=== PATIENT | male | born 1990 | race Hispanic/Latino ===

== ENCOUNTER 2018-09-24 14:26 | Emergency (ER) | payer OTHER ==
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
[2018-09-24 17:14] VITALS: BP 116/79; PULSE 64; RESP 20; TEMP 97.5
[2018-09-24 20:01] VITALS: O2SAT 98
== END 2018-09-24 17:13 | disposition home or self-care (01) ==
LOC: C.ER 14:26
DX: S39.012A Strain of muscle, fascia and tendon of lower back, initial encounter (principal); S16.1XXA Strain of muscle, fascia and tendon at neck level, initial encounter; V49.40XA Driver injured in collision with unspecified motor vehicles in traffic accident, initial encounter; Y92.410 Unspecified street and highway as the place of occurrence of the external cause
CPT/HCPCS: 72100; 96372; 99284; J1885